=== PATIENT | male | born 1960 | race Caucasian/White ===

== ENCOUNTER 2023-04-13 10:33 | Inpatient (IN) | payer BC ==
[2023-04-13 11:06] LABS: #Monocytes 0.3 10x3/uL (0.0-1.1); #Neutrophils 2.3 10x3/uL (1.5-8.4); %Basophils 0.3 % (0.0-2.0); %Eosinophils 0.7 % (0.0-6.0); %Lymphocytes 14.8 % (18.0-47.0); %Monocytes 8.9 % (0.0-10.0); Hematocrit 32.4 % (38.8-50.0); Hemoglobin 10.4 g/dL (13.5-17.5); Mean Corpuscular HGB CONC 32.1 g/dL (32.0-36.0); Mean Corpuscular Hemoglobin 27.9 pg (27.0-33.0); Mean Corpuscular Volume 86.9 fl (81.2-95.1); Mean Platelet Volume 9.4 fl (7.4-10.4); Platelet Count 281 10x3/uL (150-450); RBC Distribution Width 12.5 % (11.5-14.5); Red Blood Cell (RBC) Count 3.73 10x6/uL (4.32-5.72)
[2023-04-13 11:40] LABS: ALT (SGPT) 16 U/L (8-55); AST (SGOT) 19 U/L (5-34); Albumin 3.9 g/dL (3.4-4.8); Alkaline Phosphatase 87 U/L (40-110); Anion Gap 17 mmol/L (10-20); BUN (Urea Nitrogen) 53 mg/dL (8.4-25.7); Bilirubin, Total 0.3 mg/dL (0.2-1.2); Calc. Creatinine Clearance 0 mL/min (70-130); Calcium 8.3 mg/dL (7.8-10.44); Carbon Dioxide 19 mmol/L (23-31); Chloride 104 mmol/L (98-107); Estimated GFR 23; Globulin 3.3 g/dL (2.4-3.5); Glucose 175 mg/dL (80-115); Potassium 4.7 mmol/L (3.5-5.1); Protein, Total 7.2 g/dL (5.8-8.1); Sodium 135 mmol/L (136-145)
[2023-04-13 11:42] LABS: Troponin I Less than 0.010 ng/mL (< 0.028)
[2023-04-13 14:34] LABS: Bilirubin Neg (Negative); Blood, Urine 250 (Negative); Clarity Cloudy (Clear); Glucose, Urine (Dipstick) >=1000 mg/dL (Negative); Ketone, Urine 5 mg/dL (Negative); Leukocyte 500 (Negative); Nitrite Positive (Negative); Protein, Urine (Dipstick) 100 mg/dl (Neg-Trace); Urobilinogen Normal mg/dL (Less than 2)
[2023-04-13 15:03] LABS: Troponin I Less than 0.010 ng/mL (< 0.028)
[2023-04-13] MEDS ORDERED: Aspirin 81 mg Enteric Coated Tablet ONE (15:03)
[2023-04-13] MEDS ORDERED: Morphine 2 MG/ML VIAL ONE (15:03)
[2023-04-13 15:10] LABS: CAUTI Indications for Culture Fever or rigors; WBC/HPF 21-50 HPF (0-3)
[2023-04-13 15:11] LABS: Bacteria/HPF 3+ HPF (None Seen); Mucous/LPF 1+ LPF (<2+)
[2023-04-13 15:14] LABS: Squamous Epithelial 0-3 HPF (0-3)
[2023-04-13 15:16] LABS: Urine Culture Reflex Yes Yes
[2023-04-13] MEDS ORDERED: Acetaminophen 325 MG TAB PO PRN (15:25)
[2023-04-13] MEDS ORDERED: Ondansetron ODT 4 MG TAB PO PRN (15:25)
[2023-04-13 15:39] LABS: SARS-CoV-2 NAA Rapid Test DETECTED (NotDetected)
[2023-04-13] MEDS ORDERED: cefTRIAXone (ROCEPHIN) 1 GM VIAL ONE (15:44)
[2023-04-13] MEDS ORDERED: Insulin Regular 300 UNITS/3 ML VIAL SC PRN (16:17)
[2023-04-13] MEDS ORDERED: Glucagon 1 MG/ML KIT IM PRN (16:17)
[2023-04-13] MEDS ORDERED: Dextrose 50% Abboject 50 ML SYRINGE SLOW IVP PRN (16:17)
[2023-04-13] MEDS ORDERED: Dextrose 5% in Water 1,000 ML IV PRN (16:17)
[2023-04-13 20:01] LABS: Hemoglobin A1c 8.8 % (4.0-6.0)
[2023-04-13 20:14] VITALS: BMI 19.1
[2023-04-13] MEDS ORDERED: Lactated Ringer's 500 ML IV SCH (22:45)
[2023-04-14 03:42] LABS: #Monocytes 0.3 10x3/uL (0.0-1.1); #Neutrophils 3.3 10x3/uL (1.5-8.4); %Basophils 0.2 % (0.0-2.0); %Eosinophils 0.2 % (0.0-6.0); %Lymphocytes 13.2 % (18.0-47.0); %Monocytes 8.2 % (0.0-10.0); Hematocrit 27.4 % (38.8-50.0); Hemoglobin 8.7 g/dL (13.5-17.5); Mean Corpuscular HGB CONC 31.8 g/dL (32.0-36.0); Mean Corpuscular Hemoglobin 27.6 pg (27.0-33.0); Mean Platelet Volume 9.6 fl (7.4-10.4); Platelet Count 214 10x3/uL (150-450); RBC Distribution Width 12.6 % (11.5-14.5); Red Blood Cell (RBC) Count 3.15 10x6/uL (4.32-5.72); White Blood Cell (WBC) Count 4.2 10x3/uL (3.5-10.5)
[2023-04-14 03:45] LABS: Anion Gap 16 mmol/L (10-20); BUN (Urea Nitrogen) 48 mg/dL (8.4-25.7); Calc. Creatinine Clearance 25 mL/min (70-130); Carbon Dioxide 18 mmol/L (23-31); Chloride 107 mmol/L (98-107); Estimated GFR 29; Glucose 162 mg/dL (80-115); Potassium 4.5 mmol/L (3.5-5.1); Sodium 136 mmol/L (136-145)
[2023-04-14] MEDS: Atorvastatin Calcium 20 MG TAB PO SCH (09:24)
[2023-04-14] MEDS: Lactated Ringer's 1,000 ML IV SCH (12:17)
[2023-04-14] MEDS ORDERED: cefTRIAXone\\ROCEPHIN 1 GM in Sodium Chloride 0.9% 100 ML IVPB SCH (16:00)
[2023-04-14] MEDS: Carvedilol 3.125 MG TAB PO SCH (16:18)
[2023-04-15] MEDS: Lactated Ringer's 1,000 ML IV SCH ×3 (00:15→08:56)
[2023-04-15 04:29] LABS: #Monocytes 0.3 10x3/uL (0.0-1.1); #Neutrophils 1.5 10x3/uL (1.5-8.4); %Eosinophils 1.1 % (0.0-6.0); %Lymphocytes 33.1 % (18.0-47.0); %Monocytes 10.5 % (0.0-10.0); %Neutrophils 54.9 % (40.0-75.0); Hematocrit 27.3 % (38.8-50.0); Hemoglobin 8.7 g/dL (13.5-17.5); Mean Corpuscular HGB CONC 31.9 g/dL (32.0-36.0); Mean Corpuscular Hemoglobin 27.5 pg (27.0-33.0); Mean Corpuscular Volume 86.4 fl (81.2-95.1); Mean Platelet Volume 9.3 fl (7.4-10.4); Platelet Count 186 10x3/uL (150-450); RBC Distribution Width 12.7 % (11.5-14.5); Red Blood Cell (RBC) Count 3.16 10x6/uL (4.32-5.72); White Blood Cell (WBC) Count 2.8 10x3/uL (3.5-10.5)
[2023-04-15 04:45] LABS: Anion Gap 13 mmol/L (10-20); BUN (Urea Nitrogen) 41 mg/dL (8.4-25.7); Calc. Creatinine Clearance 29 mL/min (70-130); Carbon Dioxide 21 mmol/L (23-31); Chloride 109 mmol/L (98-107); Estimated GFR 35; Glucose 130 mg/dL (80-115); Potassium 4.2 mmol/L (3.5-5.1); Sodium 139 mmol/L (136-145)
[2023-04-15] MEDS: Carvedilol 3.125 MG TAB PO SCH (08:56)
[2023-04-15] MEDS: Atorvastatin Calcium 20 MG TAB PO SCH (08:56)
[2023-04-15 09:28] VITALS: BP 164/83; TEMP 98.1
== END 2023-04-15 11:21 | disposition home or self-care (01) | DRG 682 ==
LOC: CSHERS 10:33 → CSHERHOLD 14:58 → CSHTELE 18:56 → OBSVTOIN 04-14 08:06
PROVIDERS: ADMIT Internal Medicine; ATTEND Internal Medicine
DX: N17.9 Acute kidney failure, unspecified (principal); U07.1 COVID-19; N30.01 Acute cystitis with hematuria; N18.4 Chronic kidney disease, stage 4 (severe); I12.9 Hypertensive chronic kidney disease with stage 1 through stage 4 chronic kidney disease, or unspecified chronic kidney disease; I25.10 Atherosclerotic heart disease of native coronary artery without angina pectoris; E11.22 Type 2 diabetes mellitus with diabetic chronic kidney disease; I95.1 Orthostatic hypotension; E86.0 Dehydration; E78.5 Hyperlipidemia, unspecified; E11.21 Type 2 diabetes mellitus with diabetic nephropathy; J06.9 Acute upper respiratory infection, unspecified; Z95.1 Presence of aortocoronary bypass graft; Z79.82 Long term (current) use of aspirin; Z79.899 Other long term (current) drug therapy
CPT/HCPCS: 36415; 36416; 71046; 76770; 80048; 80053; 81001; 83036; 84484; 85025; 87077; 87086; 87186; 93005; 96361; 96374; 96375; J0696; J1650; J2272; J3490; J7120